=== PATIENT | female | born 2000 | race Caucasian/White ===

== ENCOUNTER 2022-01-11 10:34 | Emergency (ER) | payer MEDICAID, SELFPAY ==
--- NOTE | ~2022-01-11 | US_ITS ---
EXAMINATION: US OB limited DATE: 01/11/2022 12:10 INDICATION: Generalized abdominal pain during second trimester TECHNIQUE: Real-time ultrasound of the pelvis was performed. The interpreting radiologist was not pre sent for the study. COMPARISON: None. FINDINGS: There is a single living fetus in transverse lie. The placenta is anterior. There are hypoe choic areas within the placenta. No definite placental abruption is identified. cardiac activit y and movement are noted. heart rate is 142 beats per minute (bpm). The amniotic fluid in dex is subjectively normal. IMPRESSION: 1. Single living fetus in transverse lie. 2. Hypoechoic areas within the placenta which could reflect venous lakes. No definite placental abrup tion identified. If the patient and fetus are clinically stable, would recommend continued clinical f ollow-up. Reviewed, dictated and finalized at location B. IMPRESSION: 1. Single living fetus in transverse lie. 2. Hypoechoic areas within the placenta which could reflect venous lakes. No de finite placental abruption identified. If the patient and fetus are clinically stable, would recommend continued clinical follow-up.
[2022-01-11 10:39] VITALS: BP 132/62; PULSE 85; RESP 20; TEMP 36.6; O2SAT 100
--- NOTE | 2022-01-11 10:42 | ECG_ITS ---
Measurements Intervals [place] Rate: 80 P: 58 ND: 135 QRS: 88 QRSD: 85 T: 54 QT: 411 QTc: 476 Interpretive Statements SINUS RHYTHM WITH SINUS ARRHYTHMIA POSSIBLE RIGHT VENTRICULAR CONDUCTION DELAY [RSR (QR) IN V1/V2] MODERATE T-WAVE ABNORMALITY, CONSIDER ANTERIOR ISCHEMIA [-0.1+ mV T WAVE IN V3/V4] ABNORMAL ECG NO PREVIOUS ECG AVAILABLE FOR COMPARISON Electronically Signed On 01-11-2022 11:25:48 CDT by Kong Cyr M.D.
[2022-01-11 11:14] LABS: Basophils Percent Auto 0.2 % (0.2-1.2); Hematocrit 36.8 % (37.0-47.0); Hemoglobin 12.6 g/dL (12.0-15.0); Immature Granulocyte Absolute 0.09 K/mm3 (0.00-0.031); Immature Granulocyte Percent A 0.5 % (0-0.5); Lymphocytes Absolute Auto 1.09 K/mm3 (0.9-3.2); Mean Corpuscular HGB Conc 34.2 g/dl (32-36); Mean Corpuscular Hemoglobin 31.3 pg (26-34); Mean Corpuscular Volume 91.3 fl (80-100); Mean Platelet Volume 10.4 fl (7.4-10.4); Monocytes Absolute Auto 0.4 K/mm3 (0.1-0.6); Monocytes Percent Auto 1.9 % (2.6-8.5); Neutrophils Absolute Auto 16.5 K/mm3 (1.3-6.7); Neutrophils Percent Auto 91.4 % (45.5-73.1); Platelet Count Result 331 k/mm3 (150-375); Red Blood Count 4.03 M/mm3 (4.2-5.4); Red Cell Distribution Width 13.2 % (11.5-14.5)
[2022-01-11 11:24] LABS: Prothrombin Time 12.7 Seconds (11.1-14.7)
[2022-01-11 11:25] LABS: Partial Thromboplastin Time 21.9 SECONDS (22.3-36.8)
[2022-01-11 11:28] LABS: Alanine Aminotransferase 11 U/L (4-35); Albumin Level 4.5 g/dL (3.5-5.1); Alkaline Phosphatase 79 U/L (38-126); Anion Gap 12 mmol/L (8-16); Aspartate Amino Transferase 24 U/L (14-36); Bilirubin,Total 0.5 mg/dL (0.2-1.3); Blood Urea Nitrogen 11 mg/dL (7-17); Calcium 9.4 mg/dL (8.4-10.2); Carbon Dioxide 15 mmol/L (22-30); Chloride 107 mmol/L (98-107); Estimated CRCL calculation 155 ml/min; Estimated Glomerular Filt Rate > 60; Glucose 112 mg/dL (65-110); Lipase 28 U/L (23-300); Potassium 3.5 mmol/L (3.4-5.0); Sodium 134 mmol/L (137-145)
--- NOTE | 2022-01-11 11:39 | ED.FEMALEGU ---
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 She reports generalized body aches, says that she hurts all over. She is difficult to get a good history from, she is thrashing all over the stretcher. She reports that she is 18 weeks . She says that this is her first . She says she saw her OB provider yesterday but she was not prescribed anything for nausea/vomiting. She denies any urinary symptoms. No fever or chills. Related Data Allergies Allergy/AdvReac Type Severity Reaction Status Date / Time latex AdvReac Severe Verified 08/11/17 14:59 Review of Systems Constitutional: Constitutional: Denies chills and Denies fatigue ENT: Denies nasal congestion and Denies sore throat Cardiovascular: Cardiovascular: Denies chest pain Respiratory: Respiratory: Denies chest congestion, Denies cough, Denies dyspnea and Denies wheezing Gastrointestinal: Gastrointestinal: Reports diarrhea, Reports nausea and Reports vomiting Genitourinary: Genitourinary: Denies nocturia, Denies dysuria and Denies flank pain Musculoskeletal: Musculoskeletal: Reports myalgias Neurologic: Denies dizziness and Denies focal weakness Endocrine: Endocrine: Denies polydipsia and Denies polyuria Exam Const: General: alert Orientation/consciousness: patient oriented x3 Other: distress due to n/v, generalized body aches HENMT: Head: normal to inspection Eyes: Conjunctivae: conjunctivae normal Neck: Neck: normal visual inspection Chest: Chest palpation & inspection: normal inspection of the chest Resp: Effort & Inspection: normal respiratory effort Auscultation: clear to auscultation bilaterally Cardio: Rate: regular rate Rhythm: regular rhythm GI: GI Palp: Yes Soft to palpation, No Tenderness to palpation present (GI) and No Guarding due to palpation present (GI) Auscultation: normal bowel sounds : General: Yes CVA tenderness and Yes no CVA tenderness Skin: General skin exam: normal color Rashes: no rashes Neuro: General: patient oriented x3, moves all extremities and no focal motor deficits Extrem: General: normal to inspection Psych: Mental Status: mental status grossly normal Affect: Anxious affect present Course Course Emergency Course: Pt reports that symptoms fully resolved after recieving compazine and she is wanting to go home. She is scheduled to see her OB profvider on Monday. Reevaluation(s) Reevaluation #1: symptoms fully resolved, no further n/v, no further pain sx Date: 01/11/22 Time: 12:44 Vital Signs Vital signs: Vital Signs Temperature 36.6 C 01/11/22 10:39 Pulse Rate 85 01/11/22 10:39 Respiratory Rate 20 01/11/22 10:39 Blood Pressure 132/62 01/11/22 10:39 Pulse Oximetry 100 01/11/22 10:39 Temperature 36.6 C 01/11/22 10:39 Pulse Rate 72 01/11/22 13:26 Respiratory Rate 18 01/11/22 13:26 Blood Pressure 102/84 01/11/22 13:26 Pulse Oximetry 95 01/11/22 13:26 MDM - Female Genitourinary Differential Diagnosis Differential diagnosis: Likely urinary tract infection and other (acute gastroenteritis, hyperemesis gravidarum, viral syndrome) Medical Records Attestation: I reviewed the patient's medical records. Lab Data Attestation: I reviewed the patient's lab results. Result diagrams: 01/11/22 11:01 01/11/22 11:01 Labs: Lab Results 01/11/22 01/11/22 01/11/22 Range/Units 11:01 11:01 11:01 WBC 18.0 H (4.5-10.0) K/mm3 RBC 4.03 L (4.2-5.4) M/mm3 Hgb 12.6 (12.0-15.0) g/dL Hct 36.8 L (37.0-47.0) % MCV 91.3 (80-100) fl MCH 31.3 (26-34) pg MCHC 34.2 (32-36) g/dl RDW 13.2 (11.5-14.5) % Plt Count 331 (150-375) k/mm3 MPV 10.4 (7.4-10.4) fl
[2022-01-11 11:40] LABS: Troponin I < 0.012 ng/mL (0.000-0.034)
[2022-01-11 11:45] VITALS: PULSE 84; O2SAT 100
[2022-01-11] MEDS: ONDANSETRON INJ 4 MG/2 ML VIAL IV PUSH (11:50)
[2022-01-11] MEDS: MORPHINE SULFATE (*CRX) 4 MG/ML INJ 2 MG IV PUSH (11:54)
[2022-01-11] MEDS: SODIUM CHLORIDE 0.9% IV 1,000 ML 999 ML IV CONT (11:54)
--- NOTE | 2022-01-11 12:00 | PC.NURSE ---
Patient off unit to Radiology for US.
[2022-01-11 12:03] LABS: Lactic Acid Reflex 1.8 mmol/L (0.7-2.1)
[2022-01-11 12:04] LABS: Add Urine Microscopic? YES; Appearance Urine Cloudy (Clear); Bilirubin Urine Negative (Negative); Blood Urine Negative (Negative); Color Urine Yellow (Yellow); Glucose Urine UA Negative (Negative); Ketones Urine 2+ mg/dL (Negative); Leukocyte Esterase Ur Negative LEU/UL (Negative); Mucus Urine Few /lpf; Nitrate Urine Negative (Negative); Protein Urine 2+ mg/dL (Negative); RBC Urine 0-2 /hpf (0-2); Squamous Epithelial Cell Urine Occasional /hpf (Few); Urobilinogen Urine Negative mg/dL (<2.0); WBC Urine 0-3 /hpf
[2022-01-11 12:06] LABS: Specific Grav Ur 1.032 (1.001-1.035)
[2022-01-11 12:11] LABS: Amphetamine Screen Urine Negative (Negative); Barbiturate Screen Urine Negative (Negative); Benzodiazepines Screen Urine Negative (Negative); Cannabinoid Screen Urine Positive (Negative); Cocaine Screen Urine Negative (Negative); Methadone Screen Urine Negative (Negative); Opiate Screen Urine Negative (Negative); Phencyclidine Screen Urine Negative (Negative)
[2022-01-11] MEDS: PROCHLORPERAZINE EDISYLATE 10 MG/2 ML VIAL IV PUSH (12:20)
[2022-01-11 12:23] VITALS: BP 124/92
[2022-01-11 13:26] VITALS: BP 102/84; PULSE 72; RESP 18; O2SAT 95
--- NOTE | 2022-02-01 10:23 | PC.NURSE ---
LATE ENTRY This note is being entered to document information to the patient's record. The following information was omitted on [01/11/22], by [Isadora Cassidy RN]. NS stop time 1245pm.
== END 2022-01-11 13:29 | disposition home or self-care (01) ==
PROVIDERS: Emergency Medicine; Emergency Provider Nurse Practitioner Family
DX: O21.9 Vomiting of pregnancy, unspecified (principal); Z3A.18 18 weeks gestation of pregnancy; R94.31 Abnormal electrocardiogram [ECG] [EKG]
CPT/HCPCS: 36415; 76815; 80053; 80307; 81001; 83605; 83690; 84484; 85025; 85610; 85730; 93005; 96361; 96374; 96375; 99284; J0780; J2270; J2405; J7030